=== PATIENT | female | born 1960 | race Caucasian/White ===

== ENCOUNTER 2019-05-20 15:34 | Emergency (ER) | payer BC ==
[~2019-05-20] VITALS: Ht 162.6 cm; Wt 75.0 kg
[2019-05-20 17:43] VITALS: BP 143/72
== END 2019-05-20 17:50 | disposition home or self-care (01) ==
LOC: ER 15:34
DX: T81.89XA Other complications of procedures, not elsewhere classified, initial encounter (principal)
CPT/HCPCS: 99281